=== PATIENT | male | born 1970 ===

== ENCOUNTER 2020-06-29 19:12 | Emergency (ER) | payer MEDICAID ==
--- NOTE | 2020-06-29 19:41 | Emergency Department Report ---
HPI - General Time Seen by Provider: 06/29/20 19:37 - HPI HPI: This is a 49-year-old male who presents to the emergency department through triage with a complaint of a 3-day history of generalized chest and abdominal pain. He drove himself in to be seen. While being evaluated in triage the patient went unresponsive. He is arousable upon being brought back to room #19. He confirms the 3-day complaint of chest and abdominal pain. He denies any past medical history. He is a tobacco smoker. He drinks alcohol occasionally but denies any alcohol dependence. He denies any illicit drug use. He has not taken anything for symptoms prior to presentation. He says that both the chest and abdominal pain are 10 out of 10 in intensity. No known aggravating or alleviating factors. ED Past Medical Hx - Medications Home Medications: Home Medications Medication Instructions Recorded Confirmed Last Taken Type Famotidine [Pepcid] 20 mg PO BID #20 tablet 06/30/20 Unknown Rx ED Review of Systems ROS: Stated complaint: STOMACH PAIN Other details as noted in HPI Comment: All other systems reviewed and negative Constitutional: denies: chills, fever Eyes: denies: eye pain, vision change ENT: denies: ear pain, throat pain Respiratory: denies: cough, shortness of breath Cardiovascular: chest pain. denies: palpitations Gastrointestinal: abdominal pain. denies: nausea, vomiting Genitourinary: denies: dysuria, discharge Musculoskeletal: denies: back pain, arthralgia Skin: denies: rash, lesions Neurological: denies: headache, weakness Physical Exam - Physical Exam Physical Exam: GENERAL: The patient is well-developed well-nourished. HENT: Normocephalic. Atraumatic. Patient has moist mucous membranes. EYES: Extraocular motions are intact. NECK: Supple. Trachea is midline. CHEST/LUNGS: Clear to auscultation. There is no respiratory distress noted. HEART/CARDIOVASCULAR: Regular. There is no tachycardia. There is no murmur. ABDOMEN: Abdomen is soft. Generalized abdominal tenderness to palpation. No guarding. Patient has normal bowel sounds. There is no abdominal distention. SKIN: Skin is warm and dry. NEURO: The patient is awake, alert, and oriented. The patient is cooperative. The patient has no focal neurologic deficits. Normal speech. MUSCULOSKELETAL: There is no tenderness or deformity. There is no limitation range of motion. ED Medical Decision Making - Lab Data Result diagrams: 06/29/20 19:41 06/29/20 19:41 Lab Results 06/29/20 06/29/20 06/29/20 Range/Units 19:41 19:41 19:41 WBC 14.2 H (4.5-11.0) K/mm3 RBC 5.39 H (3.65-5.03) M/mm3 Hgb 15.9 H (11.8-15.2) gm/dl Hct 46.6 H (35.5-45.6) % MCV 87 (84-94) fl MCH 30 (28-32) pg MCHC 34 (32-34) % RDW 13.4 (13.2-15.2) % Plt Count 357 (140-440) K/mm3 Lymph % (Auto) 12.3 L (13.4-35.0) % [place] % (Auto) 5.8 (0.0-7.3) % Eos % (Auto) 0.5 (0.0-4.3) % Baso % (Auto) 0.3 (0.0-1.8) % Lymph # (Auto) 1.7 (1.2-5.4) K/mm3 [place] # (Auto) 0.8 (0.0-0.8) K/mm3 Eos # (Auto) 0.1 (0.0-0.4) K/mm3 Baso # (Auto) 0.0 (0.0-0.1) K/mm3 Seg Neutrophils % 81.1 H (40.0-70.0) % Seg Neutrophils # 11.5 H (1.8-7.7) K/mm3 PT 12.6 (12.2-14.9) Sec. INR 0.96 (0.87-1.13) APTT 27.3 (24.2-36.6) Sec. Sodium 134 L (137-145) mmol/L Potassium 4.1 (3.6-5.0) mmol/L Chloride 95.0 L (98-107) mmol/L Carbon Dioxide 25 (22-30) mmol/L Anion Gap 18 mmol/L BUN 16 (9-20) mg/dL Creatinine 1.1 (0.8-1.3) mg/dL Estimated GFR > 60 ml/min BUN/Creatinine Ratio 15 % Glucose 104 H (75-100) mg/dL Calcium 9.4 (8.4-10.2) mg/dL Total Bilirubin 0.60 (0.1-1.2) mg/dL AST 23 (5-40) units/L ALT 28 (7-56) units/L Alkaline Phosphatase 102 (35-129) units/L Troponin T < 0.010 (0.00-0.029) ng/mL Total Protein 7.9 (6.3-8.2) g/dL Albumin 4.6 (3.9-5) g/dL Albumin/Globulin Ratio 1.4 % Lipase 38 (13-60) units/L Urine Color (Yellow) Urine Turbidity (Clear) Urine pH (5.0-7.0) Ur Specific [place] (1.003-1.030) Urine Protein (Negative) mg/dL Urine Glucose (UA) (Negative) mg/dL Urine Ketones (Negative) mg/dL Urine Blood (Negative) Urine Nitrite (Negative) Urine Bilirubin (Negative) Urine Urobilinogen (<2.0) mg/dL Ur Leukocyte Esterase (Negative) Urine WBC (Auto) (0.0-6.0) /HPF Urine RBC (Auto) (0.0-6.0) /HPF Urine Mucus /HPF Urine Opiates Screen Urine Methadone Screen Ur Barbiturates Screen Ur Phencyclidine Scrn Ur Amphetamines Screen U Benzodiazepines Scrn Urine Cocaine Screen U Marijuana (THC) Screen Drugs of Abuse Note Plasma/Serum Alcohol (0-0.07) % 06/29/20 06/29/20 06/30/20 Range/Units 19:41 22:40 00:00 WBC (4.5-11.0) K/mm3 RBC (3.65-5.03) M/mm3 Hgb (11.8-15.2) gm/dl Hct (35.5-45.6) % MCV (84-94) fl MCH (28-32) pg MCHC (32-34) % RDW (13.2-15.2) % Plt Count (140-440) K/mm3 Lymph % (Auto) (13.4-35.0) % [place] % (Auto) (0.0-7.3) % Eos % (Auto) (0.0-4.3) % Baso % (Auto) (0.0-1.8) % Lymph # (Auto) (1.2-5.4) K/mm3 [place] # (Auto) (0.0-0.8) K/mm3 Eos # (Auto) (0.0-0.4) K/mm3 Baso # (Auto) (0.0-0.1) K/mm3 Seg Neutrophils % (40.0-70.0) % Seg Neutrophils # (1.8-7.7) K/mm3 PT (12.2-14.9) Sec. INR (0.87-1.13) APTT (24.2-36.6) Sec. Sodium (137-145) mmol/L Potassium (3.6-5.0) mmol/L Chloride (98-107) mmol/L Carbon Dioxide (22-30) mmol/L Anion Gap mmol/L BUN (9-20) mg/dL Creatinine (0.8-1.3) mg/dL Estimated GFR ml/min BUN/Creatinine Ratio % Glucose (75-100) mg/dL Calcium (8.4-10.2) mg/dL Total Bilirubin (0.1-1.2) mg/dL AST (5-40) units/L ALT (7-56) units/L Alkaline Phosphatase (35-129) units/L Troponin T < 0.010 (0.00-0.029) ng/mL Total Protein (6.3-8.2) g/dL Albumin (3.9-5) g/dL Albumin/Globulin Ratio % Lipase (13-60) units/L Urine Color Yellow (Yellow) Urine Turbidity Clear (Clear) Urine pH 6.0 (5.0-7.0) Ur Specific [place] 1.057 H (1.003-1.030) Urine Protein <15 mg/dl (Negative) mg/dL Urine Glucose (UA) Neg (Negative) mg/dL Urine Ketones 80 (Negative) mg/dL Urine Blood Sm (Negative) Urine Nitrite Neg (Negative) Urine Bilirubin Neg (Negative) Urine Urobilinogen 2.0 (<2.0) mg/dL Ur Leukocyte Esterase Neg (Negative) Urine WBC (Auto) 2.0 (0.0-6.0) /HPF Urine RBC (Auto) 11.0 (0.0-6.0) /HPF Urine Mucus 1+ /HPF Urine Opiates Screen Urine Methadone Screen Ur Barbiturates Screen Ur Phencyclidine Scrn Ur Amphetamines Screen U Benzodiazepines Scrn Urine Cocaine Screen U Marijuana (THC) Screen Drugs of Abuse Note Plasma/Serum Alcohol < 0.01 (0-0.07) % 06/30/20 Range/Units 00:00 WBC (4.5-11.0) K/mm3 RBC (3.65-5.03) M/mm3 Hgb (11.8-15.2) gm/dl Hct (35.5-45.6) % MCV (84-94) fl MCH (28-32) pg MCHC (32-34) % RDW (13.2-15.2) % Plt Count (140-440) K/mm3 Lymph % (Auto) (13.4-35.0) % [place] % (Auto) (0.0-7.3) % Eos % (Auto) (0.0-4.3) % Baso % (Auto) (0.0-1.8) % Lymph # (Auto) (1.2-5.4) K/mm3 [place] # (Auto) (0.0-0.8) K/mm3 Eos # (Auto) (0.0-0.4) K/mm3 Baso # (Auto) (0.0-0.1) K/mm3 Seg Neutrophils % (40.0-70.0) % Seg Neutrophils # (1.8-7.7) K/mm3 PT (12.2-14.9) Sec. INR (0.87-1.13) APTT (24.2-36.6) Sec. Sodium (137-145) mmol/L Potassium (3.6-5.0) mmol/L Chloride (98-107) mmol/L Carbon Dioxide (22-30) mmol/L Anion Gap mmol/L BUN (9-20) mg/dL Creatinine (0.8-1.3) mg/dL Estimated GFR ml/min BUN/Creatinine Ratio % Glucose (75-100) mg/dL Calcium (8.4-10.2) mg/dL Total Bilirubin (0.1-1.2) mg/dL AST (5-40) units/L ALT (7-56) units/L Alkaline Phosphatase (35-129) units/L Troponin T (0.00-0.029) ng/mL Total Protein (6.3-8.2) g/dL Albumin (3.9-5) g/dL Albumin/Globulin Ratio % Lipase (13-60) units/L Urine Color (Yellow) Urine Turbidity (Clear) Urine pH (5.0-7.0) Ur Specific [place] (1.003-1.030) Urine Protein (Negative) mg/dL Urine Glucose (UA) (Negative) mg/dL Urine Ketones (Negative) mg/dL Urine Blood (Negative) Urine Nitrite (Negative) Urine Bilirubin (Negative) Urine Urobilinogen (<2.0) mg/dL Ur Leukocyte Esterase (Negative) Urine WBC (Auto) (0.0-6.0) /HPF Urine RBC (Auto) (0.0-6.0) /HPF Urine Mucus /HPF Urine Opiates Screen Presumptive negative Urine Methadone Screen Presumptive negative Ur Barbiturates Screen Presumptive negative Ur Phencyclidine Scrn Presumptive negative Ur Amphetamines Screen Presumptive positive U Benzodiazepines Scrn Presumptive negative Urine Cocaine Screen Presumptive negative U Marijuana (THC) Screen Presumptive negative Drugs of Abuse Note Disclamer Plasma/Serum Alcohol (0-0.07) % - EKG Data -: EKG Interpreted by Me EKG shows normal: sinus rhythm, axis (Left axis deviation), intervals, QRS complexes ( left anterior fascicular block), ST-T waves Rate: normal - EKG Data When compared to previous EKG there are: previous EKG unavailable Interpretation: other (Sinus rhythm, left axis deviation, left anterior fascicular block. No ST elevation [place]) - Radiology Data Radiology results: report reviewed, image reviewed interpreted by me: Chest x-ray does not show any acute process. There are no pleural effusions, obvious pneumonia and there is no pneumothorax. No significant cardiomegaly. Abdominal x-ray shows nonspecific nonobstructive bowel gas. No free air. CT ABDOMEN AND PELVIS WITH CONTRAST INDICATION / CLINICAL INFORMATION: Abd pain. TECHNIQUE: Axial CT images were obtained through the abdomen and pelvis following the administration of intravenous contrast. All CT scans at this location are performed using CT dose reduction for ALARA by means of automated exposure control. COMPARISON: None available. FINDINGS: LOWER CHEST: No significant abnormality. LIVER: No significant abnormality. GALLBLADDER: No significant abnormality. PANCREAS: No significant abnormality. SPLEEN: No significant abnormality. ADRENALS: No significant abnormality. KIDNEYS / URETERS: No significant abnormality. URINARY BLADDER: No significant abnormality. REPRODUCTIVE ORGANS: No significant abnormality. STOMACH / SMALL BOWEL: There may be mild mucosal thickening involving the distal stomach/pylorus with questionable mild inflammatory change. COLON: No significant abnormality. APPENDIX: No significant abnormality. PERITONEUM: No free fluid. No free air. No fluid collection. LYMPH NODES: No significant adenopathy. AORTA / ARTERIES: No significant abnormality. IVC / VEINS: No significant abnormality. SKELETAL SYSTEM: No significant abnormality. ADDITIONAL FINDINGS: None. IMPRESSION: 1. Questionable mild gastritis. 2. No additional acute abdominopelvic abnormalities. CTA CHEST WITH CONTRAST INDICATION / CLINICAL INFORMATION: CP, SOB. TECHNIQUE: Axial CT images were obtained through the chest after injection of IV contrast. 3 plane MIP and/or 3D reconstructions were produced. All CT scans at this location are performed using CT dose reduct ion for ALARA by means of automated exposure control. COMPARISON: None available. FINDINGS: PULMONARY ARTERIES: No pulmonary emboli. THORACIC AORTA: No significant abnormality. HEART: No significant abnormality. CORONARY ARTERIES: No significant calcification. MEDIASTINUM / TOOTIE: No significant abnormality. PLEURA: No pleural effusion. No pneumothorax. LUNGS: No acute air space or interstitial disease. ADDITIONAL FINDINGS: None. UPPER ABDOMEN: No acute findings. SKELETAL STRUCTURES: No signi ficant osseous abnormality. IMPRESSION: 1. No CT evidence for pulmonary embolism. 2. No acute findings. - Medical Decision Making This patient presents to the emergency department with a 3-day history of chest and abdominal pains. While he was in triage he started having some unresponsive episodes. At the time of my examination the patient is arousable and oriented, AAO x3. EKG did not have any morphology consistent with ST elevation myocardial infarction. Labs showed a leukocytosis of 14,000. UDS positive for amphetamines. Chest x-ray does not show any pneumonia, pleural effusions, pneumothorax, or any other acute process. Abdominal x-ray shows nonspecific nonobstructive bowel gas and no free air. Patient was given some IV fluid resuscitation. Given the chest and abdominal pain, as well as the unresponsive episodes, I sent the patient for CT angiography of the chest and a CT scan of the abdomen and pelvis with IV contrast. I was looking to rule out pulmonary embolism, aortic dissection. Essentially these CT imaging studies were unremarkable except for possible gastritis. The patient was reevaluated multiple times over multiple hours and both appears and feels improved. Vital signs have been reassuring throughout his ED course including being afebrile. He is low on the heart and FRANCES score. He will be discharged home to follow-up with his primary care physician. We discussed avoiding any further amphetamine or illicit drug use. His contact information has been sent over to the [facility], and some one from their office should be contacting him shortly for close outpatient follow-up as per our [facility] low risk chest pain protocol. Critical Care Time: No Critical care attestation.: If time is entered above; I have spent that time in minutes in the direct care of this critically ill patient, excluding procedure time. ED Disposition Clinical Impression: Dehydration Chest pain Qualifiers: Chest pain type: unspecified Qualified Code(s): R07.9 - Chest pain, unspecified Abdominal pain Qualifiers: Abdominal location: generalized Qualified Code(s): R10.84 - Generalized abdominal pain Disposition: TO HOME OR SELFCARE Is pt being admited?: No Condition: Stable Instructions: Abdominal Pain, Adult, Nonspecific Chest Pain, Adult, Dehydratio n, Adult Additional Instructions: Increase your oral rehydration. Please follow-up with a primary care physician in the next few days. I have sent your contact information over to the [facility], and someone from their office should be contacting you shortly for close outpatient follow-up. Just in case, I am giving you a referral for one of their director operations broadcast, Dr. Fowler. Return to the emergency department with any worsening of your symptoms, new or concerning symptoms not addressed during this current emergency department visit, or with any acute distress. Prescriptions: Famotidine [Pepcid] 20 mg PO BID #20 tablet Referrals: PRIMARY CARE, [Primary Care Provider] - 2-3 Days INDERJIT FOWLER MD [Staff Physician] - 2-3 Days Time of Disposition: 00:39 Heart Score - HEART Score History: Slightly suspicious EKG: Non-specific Age: 45-65 Risk factors: 1-2 risk factors Troponin: < normal limit HEART Score: 3 - EKG Read Time Time EKG Completed: 19:47 EKG Read Time: 19:48
[2020-06-29 19:56] LABS: Basophils % (Auto) 0.3 % (0.0-1.8); Eosinophils # (Auto) 0.1 K/mm3 (0.0-0.4); Eosinophils % (Auto) 0.5 % (0.0-4.3); Hematocrit 46.6 % (35.5-45.6); Hemoglobin 15.9 gm/dl (11.8-15.2); Lymphocytes # (Auto) 1.7 K/mm3 (1.2-5.4); Lymphocytes % (Auto) 12.3 % (13.4-35.0); Mean Corpuscular HGB Conc 34 % (32-34); Mean Corpuscular Volume 87 fl (84-94); Monocytes # (Auto) 0.8 K/mm3 (0.0-0.8); Monocytes % (Auto) 5.8 % (0.0-7.3); Platelet Count 357 K/mm3 (140-440); Red Blood Count 5.39 M/mm3 (3.65-5.03); Red Cell Distribution Width 13.4 % (13.2-15.2)
[2020-06-29 20:04] LABS: INR 0.96 (0.87-1.13); Partial Thromboplastin Time 27.3 Sec. (24.2-36.6)
[2020-06-29] MEDS ORDERED: SODIUM CHLORIDE 0.9% 1000 ML 1,000 ML IV ONE ×2 (20:15→22:43)
[2020-06-29 20:18] LABS: Alanine Aminotransferase 28 units/L (7-56); Albumin 4.6 g/dL (3.9-5); BUN/Creatinine Ratio 15; Blood Urea Nitrogen 16 mg/dL (9-20); Calcium 9.4 mg/dL (8.4-10.2); Hemolysis Index 9
--- NOTE | 2020-06-29 21:17 | Cat Scan Report ---
CTA CHEST WITH CONTRAST INDICATION / CLINICAL INFORMATION: CP, SOB. TECHNIQUE: Axial CT images were obtained through the chest after injection of IV contrast. 3 plane MIP and/or 3D reconstructions were produced. All CT scans at this location are performed using CT dose reduction f or ALARA by means of automated exposure control. COMPARISON: None available. FINDINGS: PULMONARY ARTERIES: No pulmonary emboli. THORACIC AORTA: No significant abnormality. HEART: No significant abnormality. CORONARY ARTERIES: No significant calcification. MEDIASTINUM / TOOTIE: No significant abnormality. PLEURA: No pleural effusion. No pneumothorax. LUNGS: No acute air space or interstitial disease. ADDITIONAL FINDINGS: None. UPPER ABDOMEN: No acute findings. SKELETAL STRUCTURES: No significant osseous abnormality. IMPRESSION: 1. No CT evidence for pulmonary embolism. 2. No acute findings. Signer Name: Uriel Domingo MD Signed: 06/29/2020 9:13 PM Workstation Name: [id number]
--- NOTE | 2020-06-29 21:20 | Cat Scan Report ---
CT ABDOMEN AND PELVIS WITH CONTRAST INDICATION / CLINICAL INFORMATION: Abd pain. TECHNIQUE: Axial CT images were obtained through the abdomen and pelvis following the administration of intraven ous contrast. All CT scans at this location are performed using CT dose reduction for ALARA by means of automated exposure control. COMPARISON: None available. FINDINGS: LOWER CHEST: No significant abnormality. LIVER: No significant abnormality. GALLBLADDER: No significant abnormality. PANCREAS: No significant abnormality. SPLEEN: No significant abnormality. ADRENALS: No significant abnormality. KIDNEYS / URETERS: No significant abnormality. URINARY BLADDER: No significant abnormality. REPRODUCTIVE ORGANS: No significant abnormality. STOMACH / SMALL BOWEL: There may be mild mucosal thickening involving the distal stomach/pylorus with questionable mild inflammatory change. COLON: No significant abnormality. APPENDIX: No significant abnormality. PERITONEUM: No free fluid. No free air. No fluid collection. LYMPH NODES: No significant adenopathy. AORTA / ARTERIES: No significant abnormality. IVC / VEINS: No significant abnormality. SKELETAL SYSTEM: No significant abnormality. ADDITIONAL FINDINGS: None. IMPRESSION: 1. Questionable mild gastritis. 2. No additional acute abdominopelvic abnormalities. Signer Name: Uriel Domingo MD Signed: 06/29/2020 9:16 PM Workstation Name: [id number]
--- NOTE | 2020-06-29 21:24 | XRay Report ---
ABDOMEN 3 VIEW(S) INDICATION / CLINICAL INFORMATION: CP, abd pain. COMPARISON: None available. FINDINGS: TUBES / LINES: None. BOWEL GAS PATTERN: No significant abnormality. FREE AIR / EXTRALUMINAL GAS: None seen. ADDITIONAL FINDINGS: No significant additional findings. CHEST: Visualized chest shows no significant abnormality. IMPRESSION: No significant abnormality. Signer Name: Uriel Domingo MD Signed: 06/29/2020 9:19 PM Workstation Name: [id number]
[2020-06-30 00:14] LABS: Bilirubin,Urine NEG (Negative); Blood,Urine SM (Negative); Color,Urine Yellow (Yellow); Mucus,Urine 1+ /HPF; Protein,Urine <15 mg/dL mg/dL (Negative)
[2020-06-30 00:21] LABS: Amphetamine Screen,Urine PRESUMPTIVE POSITIVE; Benzodiazepines Screen,Urine PRESUMPTIVE NEGATIVE; Cannabinoid Screen,Urine PRESUMPTIVE NEGATIVE; Cocaine Screen,Urine PRESUMPTIVE NEGATIVE; Methadone Screen,Urine PRESUMPTIVE NEGATIVE; Opiate Screen,Urine PRESUMPTIVE NEGATIVE
[2020-06-30 01:06] VITALS: BP 117/74
--- NOTE | 2020-07-01 11:53 | Electrocardiograph Report ---
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
== END 2020-06-30 01:10 | disposition home or self-care (01) ==
LOC: ED 19:12
DX: E86.0 Dehydration (principal); R10.84 Generalized abdominal pain; R07.89 Other chest pain; Z79.899 Other long term (current) drug therapy
CPT/HCPCS: 36415; 71275; 74022; 74177; 80053; 80307; 81001; 83690; 84484; 85025; 85610; 85730; 93005; 96360; 96361; 99284; J7030; Q9967; 80320; G0480

== ENCOUNTER 2020-11-29 13:03 | Emergency (ER) | payer SELFPAY ==
--- NOTE | 2020-11-29 13:15 | Emergency Department Report ---
<MICAELA FLANAGAN - Last Filed: 11/29/20 21:06> ED Abdominal Pain HPI - General Stated Complaint: ABD PAIN Time Seen by Provider: 11/29/20 13:14 - Related Data Previous Rx's Medication Instructions Recorded Last Taken Type Ondansetron [Zofran Odt] 4 mg PO Q8HR PRN #14 tab.rapdis 11/29/20 Unknown Rx Pantoprazole [Protonix] 40 mg PO QDAY #30 tablet 11/29/20 Unknown Rx Allergies Allergy/AdvReac Type Severity Reaction Status Date / Time No Known Allergies Allergy Unverified 06/29/20 20:07 ED Past Medical Hx - Medications Home Medications: Home Medications Medication Instructions Recorded Confirmed Last Taken Type Ondansetron [Zofran Odt] 4 mg PO Q8HR PRN #14 tab.rapdis 11/29/20 Unknown Rx Pantoprazole [Protonix] 40 mg PO QDAY #30 tablet 11/29/20 Unknown Rx ED Course - Reevaluation(s) Reevaluation #4: 11/29/20 21:08 Received patient on signout. Laboratory studies, CT scan, documentation reviewed and appreciated. I went back to evaluate the patient. He has no abdominal tenderness, rebound or guarding. His leukocytosis is likely a stress reaction. Extensive discussion had with patient regarding need to avoid NSAIDs, tobacco, alcohol, and to participate in diet lifestyle modification. Counseled that he will need to follow-up with outpatient GI. Explicitly counseled to avoid NSAIDs. Patient articulated understanding. All questions answered. Asking to eat, and asking to be discharged. We will start him on proton pump inhibitor, advised him to follow-up with outpatient primary care, return precautions are reviewed. ED Medical Decision Making - Lab Data Result diagrams: 11/29/20 13:27 11/29/20 13:27 Vital Signs 11/29/20 11/29/20 11/29/20 13:36 13:43 13:45 Temperature 98.9 F Pulse Rate 81 97 H 82 Respiratory 19 17 15 Rate Blood Pressure 116/72 126/82 O2 Sat by Pulse 98 99 98 Oximetry 11/29/20 11/29/20 11/29/20 14:01 14:06 15:01 Temperature Pulse Rate 90 74 Respiratory 15 18 13 Rate Blood Pressure 126/82 126/82 O2 Sat by Pulse 98 97 Oximetry 11/29/20 11/29/20 11/29/20 16:01 17:01 18:01 Temperature Pulse Rate 77 76 81 Respiratory 14 12 12 Rate Blood Pressure 126/82 126/82 130/83 O2 Sat by Pulse 97 Oximetry Lab Results 11/29/20 11/29/20 Range/Units 13:27 13:27 WBC 16.4 H (4.5-11.0) K/mm3 RBC 5.36 H (3.65-5.03) M/mm3 Hgb 16.1 H (11.8-15.2) gm/dl Hct 46.8 H (35.5-45.6) % MCV 87 (84-94) fl MCH 30 (28-32) pg MCHC 35 H (32-34) % RDW 12.8 L (13.2-15.2) % Plt Count 344 (140-440) K/mm3 Sodium 134 L (137-145) mmol/L Potassium 4.8 (3.6-5.0) mmol/L Chloride 96.2 L (98-107) mmol/L Carbon Dioxide 25 (22-30) mmol/L Anion Gap 18 mmol/L BUN 15 (9-20) mg/dL Creatinine 1.0 (0.8-1.3) mg/dL Estimated GFR > 60 ml/min BUN/Creatinine Ratio 15 % Glucose 116 H (75-100) mg/dL Calcium 9.5 (8.4-10.2) mg/dL Total Bilirubin 0.50 (0.1-1.2) mg/dL AST 12 (5-40) units/L ALT 12 (7-56) units/L Alkaline Phosphatase 98 (35-129) units/L Total Protein 8.1 (6.3-8.2) g/dL Albumin 4.9 (3.9-5) g/dL Albumin/Globulin Ratio 1.5 % Lipase 34 (13-60) units/L - EKG Data -: EKG Interpreted by Ms EKG shows normal: sinus rhythm Rate: normal - EKG Data When compared to previous EKG there are: previous EKG unavailable 11/29/20 21:07 EKG is interpreted at 20: 03 Sinus rhythm, rate 80 bpm. Borderline leftward axis deviation, QTC 441 ms. Normal P wave axis. Abnormal EKG. Not a STEMI. No prior for comparison. - Radiology Data Radiology results: pending, report reviewed, image reviewed CT ABDOMEN AND PELVIS WITH CONTRAST INDICATION: pain, leukocytosis CONTRAST: 100 cc Omnipaque 300 IV COMPARISON: 06/29/[address] scans at this location are performed using CT dose reduction for ALARA by means of automated exposure control. FINDINGS: Lung bases are clear. Coronary artery calcifications are moderately prominent for the patient's age. See no abnormalities of the gallbladder, bile ducts, liver, spleen, adrenals, or kidneys. No urinary or bowel obstructive changes are seen. Appendix appears within normal limits. No free fluid is seen. No lymphadenopathy is noted. Urinary bladder is mildly distended which is really not significant. Prostate and seminal vesicles appear within normal limits. The area of the distal gastric antrum, pylorus, and first portion of the duodenum appear moderately edematous. On prior study there was mild possible edema but this is much more prominent. There appears to be a posterior ulcer from the region of the distal lowers and extreme proximal duodenum measuring 12 mm. No evidence of perforation is seen. No gas is seen in the retroperitoneal tissues but there is mild stranding in the area posterior to the pylorus and anterior to the pancreas. The pancreas itself does not appear significantly edematous and I believe is only secondarily possibly involved, not the source of inflammation. Stomach is distended with fluid. IMPRESSION: Findings are most consistent with a proximal duodenal ulcer as above Signer Name: Nazario Adkins MD Signed: 11/29/2020 6:58 PM Workstation Name: [id number] ED Disposition Clinical Impression: Epigastric abdominal pain Disposition: HOME / SELF CARE / HOMELESS Is pt being admited?: No Does the pt Need Aspirin: No Condition: Good Instructions: Gastritis, Adult, [id number] Additional Instructions: Do not take Motrin, ibuprofen, Naprosyn, Aleve. Avoid consumption of heavy and spicy foods, tobacco, smoke products and alcohol. Drink 6 cups of water per day, and consume plenty of fiber, vegetables, lean protein. Avoid consumption of heavy and spicy foods CT scan of the abdomen pelvis today suggested ulcer in the duodenum, which is part of the small intestine. Please take the antacid medication as directed, and we recommend follow-up with an outpatient indirect sales representative within the next 3 to 4 weeks. We recommend follow-up with a primary care doctor within the next 2 weeks. For the patient's convenience, local primary care, local GI have been listed th at he may contact to arrange outpatient follow-up. Do not take metformin medication for the next 2 days, if patient takes this medication. Please return to the emergency room right away with new pain, worsened pain, migration of pain, projectile vomiting, change in mental status, confusion, inability to tolerate liquid feeds, new, worsened or different symptoms not present on the initial emergency room evaluation. Please have your primary care doctor or GI doctor contact medical records department, to obtain copies of laboratory studies and radiology studies, to follow-up on nonemergent incidental findings. No tome Motrin, ibuprofeno, Naprosyn, Aleve. Evite el consumo de alimentos pesad os ??y picantes, tabaco, productos de humo y alcohol. Mary 6 tazas de agua al da y consuma david fibra, verduras y protenas magras. Evite el consumo de alimentos pesados ??y picantes. La tomografa computarizada de la pelvis del abdomen sugiri hoy katelyn lcera en el duodeno, que es parte del intestino rasmussen. Brayton el medicamento anticido segn las indicaciones y le recomendamos que lo loan un seguimiento con un gastroenterlogo ambulatorio dentro de las prximas 3 a 4 semanas. Recomendamos un seguimiento con un mdico de atencin primaria dentro de las prximas 2 semanas. Para la conveniencia del paciente, se arizmendi incluido la atencin primaria local y el IG local con los que puede comunicarse para concertar un seguimiento ambulatorio. No tome el medicamento de metformina mike los prximos 2 kan, si el paciente mateus emma medicamento. Regrese a la melania de emergencias de inmediato con dolor nuevo, empeoramiento del dolor, migracin del dolor, vmitos en proyectil, cambio en el estado mental, confusin, incapacidad para tolerar alimentos lquidos, sntomas nuevos, empeorados o diferentes que no estn presentes en la evaluacin inicial de la melania de emergencias. Pdale a keith mdico de atencin primaria o mdico gastrointestinal que se comunique con el departamento de registros mdicos para obtener copias de los estudios de laboratorio y estudios de radiologa, para realizar un seguimiento de los hallazgos incidentales que no alfonzo de emergenci Prescriptions: Pantoprazole [Protonix] 40 mg PO QDAY #30 tablet Ondansetron [Zofran Odt] 4 mg PO Q8HR PRN #14 tab.rapdis PRN Reason: Nausea Referrals: MELISA COLIN MD [Staff Physician] - 3-5 Days [facility] [Provider Group] - 7-10 days <YURI RUSSELL - Last Filed: 11/30/20 09:36> ED Abdominal Pain HPI - History of Present Illness Initial Comments: Patient presents with generalized abdominal pain. This started over the last day and is periumbilical and upper abdomen in nature. He states that it is nontraumatic. Pain is sharp and stabbing and cramping. He is never had pain like this before. He has had nausea without vomiting. There is no fevers or chills. The pain started prior to GI upset. There is no recent travel. He has had no dysuria or frequency. There is no hematemesis or coffee-ground emesis. He states that movement makes the pain worse. He has not really noticed any alleviating factors. ED Review of Systems ROS: Stated complaint: ABD PAIN Other details as noted in HPI Comment: All other systems reviewed and negative Constitutional: denies: fever Eyes: denies: eye pain ENT: denies: ear pain Respiratory: denies: cough Cardiovascular: denies: chest pain Endocrine: denies: unexplained weight loss Gastrointestinal: as per HPI Genitourinary: denies: dysuria Musculoskeletal: denies: back pain Skin: denies: rash Neurological: denies: headache Hematological/Lymphatic: denies: easy bruising ED Past Medical Hx - Past Medical History Previous Medical History?: No - Family History Family history: no significant ED Physical Exam - General Limitations: No Limitations, Other ( Pulse ox is noted and normal.) General appearance: alert, in distress ( Moderate) - Head Head exam: Present: atraumatic, normocephalic, normal inspection - Eye Eye exam: Present: normal appearance, EOMI. Absent: scleral icterus - ENT ENT exam: Present: normal exam, normal orophraynx, mucous membranes moist, normal external ear exam - Neck Neck exam: Present: normal inspection. Absent: meningismus - Respiratory Respiratory exam: Present: normal lung sounds bilaterally. Absent: respiratory distress - Cardiovascular Cardiovascular Exam: Present: regular rate, normal rhythm - GI/Abdominal GI/Abdominal exam: Present: soft, tenderness ( moderate periumbilical), guarding ( voluntary) - Extremities Exam Extremities exam: Present: normal capillary refill. Absent: pedal edema - Back Exam Back exam: Absent: CVA tenderness (R), CVA tenderness (L) - Neurological Exam Neurological exam: Present: alert, oriented X3, CN II-XII intact. Absent: motor sensory deficit - Psychiatric Psychiatric exam: Present: normal affect, normal mood - Skin Skin exam: Present: warm, dry ED Course Vital Signs 11/29/20 11/29/20 11/29/20 13:36 13:43 13:45 Temperature 98.9 F Pulse Rate 81 97 H 82 Respiratory 19 17 15 Rate Blood Pressure 116/72 126/82 Blood Pressure [Right] O2 Sat by Pulse 98 99 98 Oximetry 11/29/20 11/29/20 11/29/20 14:01 14:06 15:01 Temperature Pulse Rate 90 74 Respiratory 15 18 13 Rate Blood Pressure 126/82 126/82 Blood Pressure [Right] O2 Sat by Pulse 98 97 Oximetry 11/29/20 11/29/20 11/29/20 16:01 17:01 18:01 Temperature Pulse Rate 77 76 81 Respiratory 14 12 12 Rate Blood Pressure 126/82 126/82 130/83 Blood Pressure [Right] O2 Sat by Pulse 97 Oximetry 11/29/20 11/29/20 21:43 21:44 Temperature 98.2 F 98.2 F Pulse Rate 81 81 Respiratory 20 20 Rate Blood Pressure Blood Pressure 131/86 131/86 [Right] O2 Sat by Pulse 98 98 Oximetry - Reevaluation(s) Reevaluation #1: 11/29/20 12:50 Patient was seen upon arrival. IV and labs were ordered. Medications were ordered. Reevaluation #2: 11/29/20 16:05 CT was ordered based on labs. Etiology for the pain at this point is unclear. Reevaluation #3: 11/29/20 18:56 CT is still pending. ED Medical Decision Making - Lab Data Result diagrams: 11/29/20 13:27 11/29/20 13:27 - Medical Decision Making Patient present with abdominal pain. Etiology for this remains unclear. Labs have been reviewed. He did not have evidence of acute hepatitis or pancreatitis . CT was pending. CT and disposition were signed out to the next physician. I suspect that the CT will not show peritonitis or abscess or perforation and the patient will likely be able to be discharged. Critical Care Time: No Critical care attestation.: If time is entered above; I have spent that time in minutes in the direct care of this critically ill patient, excluding procedure time. ED Disposition Is pt being admited?: No
[2020-11-29] MEDS ORDERED: SODIUM CHLORIDE 0.9% 1000 ML 1,000 ML IV ONE (13:16)
[2020-11-29] MEDS ORDERED: fentaNYL 100 MCG/2 ML INJ IV ONE (13:16)
[2020-11-29] MEDS ORDERED: ONDANSETRON 4 MG/2 ML INJ IV ONE (13:50)
[2020-11-29 14:00] LABS: Alanine Aminotransferase 12 units/L (7-56); Albumin 4.9 g/dL (3.9-5); BUN/Creatinine Ratio 15; Blood Urea Nitrogen 15 mg/dL (9-20); Calcium 9.5 mg/dL (8.4-10.2); Hemolysis Index 10
[2020-11-29 14:42] LABS: Hematocrit 46.8 % (35.5-45.6); Hemoglobin 16.1 gm/dl (11.8-15.2); Mean Corpuscular HGB Conc 35 % (32-34); Mean Corpuscular Volume 87 fl (84-94); Platelet Count 344 K/mm3 (140-440); Red Blood Count 5.36 M/mm3 (3.65-5.03); Red Cell Distribution Width 12.8 % (13.2-15.2)
--- NOTE | 2020-11-29 20:02 | Cat Scan Report ---
CT ABDOMEN AND PELVIS WITH CONTRAST INDICATION: pain, leukocytosis CONTRAST: 100 cc Omnipaque 300 IV COMPARISON: 06/29/[address] scans at this location are performed using CT dose reduction for ALARA by means of automated e xposure control. FINDINGS: Lung bases are clear. Coronary artery calcifications are moderately prominent for the patie nt's age. See no abnormalities of the gallbladder, bile ducts, liver, spleen, adrenals, or kidneys. No urinary or bowel obstructive changes are seen. Appendix appears within normal limits. No free fluid is seen. No lymphadenopathy is noted. Urinary bladder is mildly distended which is really not significant. Pro state and seminal vesicles appear within normal limits. The area of the distal gastric antrum, pylorus, and first portion of the duodenum appear moderately e dematous. On prior study there was mild possible edema but this is much more prominent. There appears to be a posterior ulcer from the region of the distal lowers and extreme proximal duodenum measuring 12 mm. No evidence of perforation is seen. No gas is seen in the retroperitoneal tissues but there i s mild stranding in the area posterior to the pylorus and anterior to the pancreas. The pancreas itse lf does not appear significantly edematous and I believe is only secondarily possibly involved, not t he source of inflammation. Stomach is distended with fluid. IMPRESSION: Findings are most consistent with a proximal duodenal ulcer as above Signer Name: Nazario Adkins MD Signed: 11/29/2020 7:58 PM Workstation Name: [id number]
[2020-11-29 21:46] VITALS: BP 131/86
--- NOTE | 2020-11-30 10:41 | Electrocardiograph Report ---
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
== END 2020-11-29 21:43 | disposition home or self-care (01) ==
LOC: ED 13:03
DX: R10.13 Epigastric pain (principal); Z79.899 Other long term (current) drug therapy
CPT/HCPCS: 36415; 74177; 80053; 83690; 85027; 93005; 96361; 96374; 96375; 99284; J2405; J3010; J7030; Q9967

== ENCOUNTER 2021-06-20 08:05 | Emergency (ER) | payer SELFPAY ==
[2021-06-20] MEDS ORDERED: SODIUM CHLORIDE 0.9% 1000 ML 1,000 ML IV ONE (08:22)
[2021-06-20] MEDS ORDERED: LACTATED RINGERS 1,000 ML IV ONE ×2 (08:58→10:55)
[2021-06-20] MEDS ORDERED: ONDANSETRON 4 MG/2 ML INJ IV ONE (08:58)
[2021-06-20] MEDS ORDERED: MORPHINE 4 MG/1 ML INJ IV ONE (08:58)
[2021-06-20] MEDS ORDERED: TETANUS,DIPH,PERTUSS(ACELL) VACCINE 0.5 ML SYRINGE IM ONE (08:58)
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
[2021-06-20 09:33] LABS: Basophils % (Auto) 0.3 % (0.0-1.8); Eosinophils # (Auto) 0.2 K/mm3 (0.0-0.4); Eosinophils % (Auto) 1.3 % (0.0-4.3); Hematocrit 43.3 % (35.5-45.6); Hemoglobin 14.3 gm/dl (11.8-15.2); Lymphocytes # (Auto) 1.8 K/mm3 (1.2-5.4); Lymphocytes % (Auto) 12.7 % (13.4-35.0); Mean Corpuscular HGB Conc 33 % (32-34); Mean Corpuscular Volume 86 fl (84-94); Monocytes # (Auto) 1.1 K/mm3 (0.0-0.8); Monocytes % (Auto) 7.8 % (0.0-7.3); Platelet Count 290 K/mm3 (140-440); Red Blood Count 5.02 M/mm3 (3.65-5.03); Red Cell Distribution Width 13.4 % (13.2-15.2)
[2021-06-20 09:57] LABS: Alanine Aminotransferase 21 units/L (7-56); Albumin 4.6 g/dL (3.9-5); BUN/Creatinine Ratio 16; Blood Urea Nitrogen 14 mg/dL (9-20); Calcium 9.4 mg/dL (8.4-10.2); Hemolysis Index 10
[2021-06-20] MEDS ORDERED: HYDROmorphone 1 MG/1 ML INJ IV ONE (10:25)
[2021-06-20 13:15] VITALS: BP 116/78
== END 2021-06-20 14:05 | disposition short-term general hospital (02) ==
LOC: ED 08:05
DX: T20.20XA Burn of second degree of head, face, and neck, unspecified site, initial encounter (principal); T22.211A Burn of second degree of right forearm, initial encounter; T23.202A Burn of second degree of left hand, unspecified site, initial encounter; F17.200 Nicotine dependence, unspecified, uncomplicated; X08.8XXA Exposure to other specified smoke, fire and flames, initial encounter; Y93.89 Activity, other specified; Y92.89 Other specified places as the place of occurrence of the external cause; Y99.8 Other external cause status; H53.9 Unspecified visual disturbance
CPT/HCPCS: 36415; 80053; 82550; 83735; 84100; 85025; 90471; 90715; 96361; 96374; 96375; 99285; J1170; J2270; J2405; J7120; 99284